=== PATIENT | male | born 1970 | race Caucasian/White ===

== ENCOUNTER 2016-03-10 09:44 | Inpatient (IN) | payer OTHER ==
[2016-03-10 10:03] VITALS: BMI 27.7
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
[2016-03-10] MEDS ORDERED: MAGNESIUM HYDROX 2400MG/30ML ORAL SUSPENSION 30 ML CUP PO PRN (10:37)
[2016-03-10] MEDS ORDERED: LOPERAMIDE HCL 2 MG CAPSULE PO PRN (10:37)
[2016-03-10] MEDS ORDERED: ACETAMINOPHEN 325 MG TABLET (FP) PO PRN (10:37)
[2016-03-10] MEDS ORDERED: MENTHOL/PHENOL 1 EACH UD MM PRN (10:37)
[2016-03-10] MEDS ORDERED: guaiFENesin/D-METHORPHAN HB 10 ML UNIT-DOSE CUPS PO PRN (10:37)
[2016-03-10] MEDS ORDERED: MAG HYDROX/AL HYDROX/SIMETH 30 ML UNIT-DOSE CUP PO PRN (10:37)
[2016-03-10] MEDS ORDERED: MAGNESIUM CITRATE 300 ML BOTTLE PO PRN (10:37)
[2016-03-10] MEDS ORDERED: IBUPROFEN 400 MG TABLET (FP) PO PRN (10:37)
[2016-03-10] MEDS ORDERED: P-EPHED 60MG/TRIPROLIDI 2.5MG TABLET PO PRN (10:37)
[2016-03-10] MEDS ORDERED: NICOTINE POLACRILEX 4 MG GUM BUC PRN (10:37)
[2016-03-10] MEDS ORDERED: METHADONE HCL 10 MG TABLET (FOR DETOX USE ONLY) PO ONE ×2 (11:30→23:00)
[2016-03-10] MEDS ORDERED: diazePAM 5 MG TABLET PO ONE (11:30)
[2016-03-10] MEDS ORDERED: LEVOTHYROXINE NA 112 MCG TABLET (FP) PO ONE (11:30)
[2016-03-10] MEDS: NICOTINE 21 MG/24 HOURS TOPICAL PATCH TD SCH (11:43)
[2016-03-10 13:39] LABS: URINE APPEARANCE CLEAR; URINE BILIRUBIN NEGATIVE (NEGATIVE); URINE BLOOD NEGATIVE (NEGATIVE); URINE COLOR YELLOW; URINE GLUCOSE (UA) NEGATIVE (NEGATIVE); URINE KETONE TRACE (NEGATIVE); URINE LEUK ESTERASE NEGATIVE (NEGATIVE); URINE NITRITE NEGATIVE (NEGATIVE); URINE PROTEIN NEGATIVE (NEGATIVE); URINE UROBILINOGEN 2.0 E.U/dl E.U./dl (0.2-1.0)
[2016-03-10] MEDS: hydrOXYzine PAMOATE 50 MG CAPSULE (FP) PO PRN (13:41)
[2016-03-10] MEDS: CYCLOBENZAPRINE HCL 10 MG TABLET (FP) PO PRN (13:41)
[2016-03-10] MEDS: diazePAM 5 MG TABLET PO SCH ×2 (13:41→22:11)
[2016-03-10] MEDS: diazePAM 5 MG TABLET PO PRN (16:44)
[2016-03-10] MEDS ORDERED: PRAZOSIN HCL 2 MG CAPSULE PO SCH (22:00)
[2016-03-10] MEDS: THIAMINE HCL 100 MG TABLET (FP) PO SCH (22:10)
[2016-03-10] MEDS: PRAZOSIN HCL 1 MG CAPSULE PO SCH (22:11)
[2016-03-10] MEDS: PRAZOSIN HCL 5 MG CAPSULE PO SCH (22:11)
[2016-03-10] MEDS: diphenhydrAMINE HCL 50 MG CAPSULE PO PRN (22:12)
[2016-03-11] MEDS: diazePAM 5 MG TABLET PO PRN ×5 (04:02→23:31)
[2016-03-11] MEDS: diazePAM 5 MG TABLET PO SCH ×3 (05:53→22:24)
[2016-03-11] MEDS: LEVOTHYROXINE NA 112 MCG TABLET (FP) PO SCH (08:03)
--- NOTE | 2016-03-11 09:46 | EKG ---
Test Reason : Blood Pressure : / mmHG Vent. Rate : 093 BPM Atrial Rate : 093 BPM P-R Int : 184 ms QRS Dur : 092 ms QT Int : 374 ms P-R-T Axes : 070 052 066 degrees QTc Int : 465 ms NORMAL SINUS RHYTHM NORMAL ECG NO PREVIOUS ECGS AVAILABLE Confirmed by ALVAREZ CASEY MD ([id number]) on 03/11/2016 9:46:25 AM Referred By: Confirmed By:ALVAREZ CASEY MD
[2016-03-11] MEDS ORDERED: METHADONE HCL 10 MG TABLET (FOR DETOX USE ONLY) PO SCH (10:00)
[2016-03-11 10:20] LABS: MCH 27.1 pg (25.7-33.7); MCHC 32.9 g/dl (32.0-35.9); MEAN CELL VOLUME 82.4 fl (80-96); MEAN PLT VOLUME 9.5 fl (7.5-11.1); PLATELET COUNT 144 K/MM3 (134-434); RDW 13.3 % (11.9-15.9); WHITE BLOOD COUNT 4.3 K/mm3 (4.0-10.0)
[2016-03-11] MEDS: NICOTINE 21 MG/24 HOURS TOPICAL PATCH TD SCH (10:22)
[2016-03-11] MEDS: PRENATAL VITAMINS W/ FOLIC ACID TABLET (FP) PO SCH (10:22)
[2016-03-11 10:56] LABS: ALBUMIN 3.4 g/dl (3.4-5.0); ALK PHOS 54 U/L (45-117); ANION GAP 10 (8-16); BILIRUBIN,TOTAL 0.3 mg/dL (0.2-1.0); CALCIUM 8.7 mg/dL (8.5-10.1); CO2 25 mmol/L (21-32); CREATININE 0.9 mg/dL (0.7-1.3); GLUCOSE,RANDOM 85 mg/dL (74-106); SGOT/AST 9 U/L (15-37); SGPT/ALT 12 U/L (12-78); TOT PROT 6.6 g/dl (6.4-8.2)
[2016-03-11] MEDS: hydrOXYzine PAMOATE 50 MG CAPSULE (FP) PO PRN ×2 (15:05→19:03)
--- NOTE | 2016-03-11 15:15 | PN ---
[facility] CIWA - CIWA Score Nausea/Vomitin-Int. Nausea w/Dry Heave Muscle Tremors: 4-Moderate,w/Arms Extend Anxiety: 4-Mod. Anxious/Guarded Agitation: 3 Paroxysmal Sweats: No Perspiration Orientation: 0-Oriented Tacttile Disturbances: 0-None Auditory Disturbances: 0-None Visual Disturbances: 0-None Headache: 3-Moderate CIWA-Ar Total Score: 18 S COWS - Scale Resting Pulse: 1= OR 81-100 Sweatin=Flushed/Facial Moisture Restless Observation: 3= Extraneous Movement Pupil Size: 0= Normal to Room Light Bone or Joint Aches: 2= Severe Diffuse Aches Runny Nose/ Eye Tearin= Runny Nose/Eyes GI Upset > 30mins: 2= Nausea/Diarrhea Tremor Observation of Outstretched Hands: 2= Slight Tremor Visible Yawning Observation: 0= None Anxiety or Irritability: 2=Irritable/Anxious Goose Flesh Skin: 0=Smooth Skin COWS Score: 16 S Progress Note (SOAP) Subjective: Sweating, nausea, tremor, interrupted sleep, anxious, restless Objective: 03/11/16 15:13 Last Vital Signs Temp Pulse Resp BP Pulse Ox 95.5 F L 74 18 110/84 03/11/16 12:34 03/11/16 12:34 03/11/16 12:34 03/11/16 12:34 Laboratory Tests 03/10/16 03/11/16 03/11/16 11:00 07:20 07:20 WBC 4.3 D RBC 4.82 Hgb 13.1 Hct 39.7 MCV 82.4 MCHC 32.9 RDW 13.3 Plt Count 144 MPV 9.5 Sodium 139 Potassium 4.3 Chloride 104 Carbon Dioxide 25 Anion Gap 10 BUN 14 D Creatinine 0.9 D Creat Clearance w eGFR > 60 Random Glucose 85 D Calcium 8.7 Total Bilirubin 0.3 D AST 9 L ALT 12 D Alkaline Phosphatase 54 Total Protein 6.6 Albumin 3.4 Urine Color Yellow Urine Appearance Clear Urine pH 5.0 Ur Specific [place] 1.029 Urine Protein Negative Urine Glucose (UA) Negative Urine Ketones Trace H Urine Blood Negative Urine Nitrite Negative Urine Bilirubin Negative Urine Urobilinogen 2.0 e.u/dl Ur Leukocyte Esterase Negative RPR Titer 03/11/16 07:20 WBC RBC Hgb Hct MCV MCHC RDW Plt Count MPV Sodium Potassium Chloride Carbon Dioxide Anion Gap BUN Creatinine Creat Clearance w eGFR Random Glucose Calcium Total Bilirubin AST ALT Alkaline Phosphatase Total Protein Albumin Urine Color Urine Appearance Urine pH Ur Specific [place] Urine Protein Urine Glucose (UA) Urine Ketones Urine Blood Urine Nitrite Urine Bilirubin Urine Urobilinogen Ur Leukocyte Esterase RPR Titer Nonreactive Labs noted Assessment: 03/11/16 15:13 Withdrawal symptoms Plan: Continue detox Ambien 10mg po qhs prn for interrupted sleep
[2016-03-11] MEDS: PRAZOSIN HCL 1 MG CAPSULE PO SCH (22:20)
[2016-03-11] MEDS: PRAZOSIN HCL 5 MG CAPSULE PO SCH (22:20)
[2016-03-11] MEDS: THIAMINE HCL 100 MG TABLET (FP) PO SCH (22:21)
[2016-03-11] MEDS: ZOLPIDEM TARTRATE 10 MG TABLET (PARK CARE ONLY) PO PRN (22:22)
[2016-03-11] MEDS: diphenhydrAMINE HCL 50 MG CAPSULE PO PRN (23:32)
[2016-03-12] MEDS: CYCLOBENZAPRINE HCL 10 MG TABLET (FP) PO PRN (02:02)
[2016-03-12] MEDS: hydrOXYzine PAMOATE 50 MG CAPSULE (FP) PO PRN ×2 (02:02→10:16)
[2016-03-12] MEDS: diazePAM 5 MG TABLET PO PRN ×4 (03:33→16:55)
[2016-03-12] MEDS: LEVOTHYROXINE NA 112 MCG TABLET (FP) PO SCH (06:47)
[2016-03-12] MEDS ORDERED: CYCLOBENZAPRINE HCL 10 MG TABLET (FP) PO ONE (09:17)
--- NOTE | 2016-03-12 09:22 | PN ---
[facility] CIWA - CIWA Score Nausea/Vomitin Muscle Tremors: 4-Moderate,w/Arms Extend Anxiety: 4-Mod. Anxious/Guarded Agitation: 4-Moderately Restless Paroxysmal Sweats: 4-Forehead w/Sweat Beads Orientation: 0-Oriented Tacttile Disturbances: 2-Mild Itch/Numbness/Burn Auditory Disturbances: 0-None Visual Disturbances: 0-None Headache: 2-Mild CIWA-Ar Total Score: 23 BHS COWS - Scale Resting Pulse: 0= [place] 80 or Below Sweatin= Beads of Sweat on Face Restless Observation: 3= Extraneous Movement Pupil Size: 0= Normal to Room Light Bone or Joint Aches: 2= Severe Diffuse Aches Runny Nose/ Eye Tearin= Runny Nose/Eyes GI Upset > 30mins: 2= Nausea/Diarrhea Tremor Observation of Outstretched Hands: 2= Slight Tremor Visible Yawning Observation: 1= 1-2x During Session Anxiety or Irritability: 2=Irritable/Anxious Goose Flesh Skin: 3=Piloerection COWS Score: 20 [facility] Progress Note (SOAP) Subjective: sweating,anxiety,tremors,restless,interrupted sleep,muscle aches/spasm Objective: 03/12/16 09:21 Vital Signs - 8 hr 03/12/16 06:16 Temperature 97.3 F L Pulse Rate 80 Respiratory 18 Rate Blood Pressure 99/64 Laboratory Tests 03/10/16 03/11/16 03/11/16 11:00 07:20 07:20 WBC 4.3 D RBC 4.82 Hgb 13.1 Hct 39.7 MCV 82.4 MCHC 32.9 RDW 13.3 Plt Count 144 MPV 9.5 Sodium 139 Potassium 4.3 Chloride 104 Carbon Dioxide 25 Anion Gap 10 BUN 14 D Creatinine 0.9 D Creat Clearance w eGFR > 60 Random Glucose 85 D Calcium 8.7 Total Bilirubin 0.3 D AST 9 L ALT 12 D Alkaline Phosphatase 54 Total Protein 6.6 Albumin 3.4 Urine Color Yellow Urine Appearance Clear Urine pH 5.0 Ur Specific [place] 1.029 Urine Protein Negative Urine Glucose (UA) Negative Urine Ketones Trace H Urine Blood Negative Urine Nitrite Negative Urine Bilirubin Negative Urine Urobilinogen 2.0 e.u/dl Ur Leukocyte Esterase Negative RPR Titer 03/11/16 07:20 WBC RBC Hgb Hct MCV MCHC RDW Plt Count MPV Sodium Potassium Chloride Carbon Dioxide Anion Gap BUN Creatinine Creat Clearance w eGFR Random Glucose Calcium Total Bilirubin AST ALT Alkaline Phosphatase Total Protein Albumin Urine Color Urine Appearance Urine pH Ur Specific [place] Urine Protein Urine Glucose (UA) Urine Ketones Urine Blood Urine Nitrite Urine Bilirubin Urine Urobilinogen Ur Leukocyte Esterase RPR Titer Nonreactive labs noted Assessment: 03/12/16 09:21 withdrawal sx. Plan: continue detox flexeril,imodium and prn valium
[2016-03-12] MEDS: PRENATAL VITAMINS W/ FOLIC ACID TABLET (FP) PO SCH (10:12)
[2016-03-12] MEDS: METHADONE HCL 5 MG TABLET (FOR DETOX USE ONLY) PO SCH (10:12)
[2016-03-12] MEDS: diazePAM 5 MG TABLET PO SCH ×2 (10:12→22:42)
[2016-03-12] MEDS: NICOTINE 21 MG/24 HOURS TOPICAL PATCH TD SCH (10:13)
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
[2016-03-12] MEDS: DULoxetine HCL 60 MG CAPSULE.DR PO SCH (14:46)
[2016-03-12] MEDS: CYCLOBENZAPRINE HCL 10 MG TABLET (FP) PO SCH ×2 (14:47→22:43)
[2016-03-12] MEDS: THIAMINE HCL 100 MG TABLET (FP) PO SCH (22:37)
[2016-03-12] MEDS: PRAZOSIN HCL 1 MG CAPSULE PO SCH (22:39)
[2016-03-12] MEDS: PRAZOSIN HCL 5 MG CAPSULE PO SCH (22:39)
[2016-03-12] MEDS: LURASIDONE HCL 40 MG TABLET PO SCH (22:41)
[2016-03-12] MEDS: ZOLPIDEM TARTRATE 10 MG TABLET (PARK CARE ONLY) PO PRN (22:42)
[2016-03-13] MEDS: diazePAM 5 MG TABLET PO PRN (06:07)
[2016-03-13] MEDS: CYCLOBENZAPRINE HCL 10 MG TABLET (FP) PO SCH ×3 (06:07→22:36)
[2016-03-13] MEDS: LEVOTHYROXINE NA 112 MCG TABLET (FP) PO SCH (07:20)
[2016-03-13] MEDS: METHADONE HCL 5 MG TABLET (FOR DETOX USE ONLY) PO SCH (11:10)
[2016-03-13] MEDS: diazePAM 5 MG TABLET PO SCH ×2 (11:10→22:35)
[2016-03-13] MEDS: PRENATAL VITAMINS W/ FOLIC ACID TABLET (FP) PO SCH (11:11)
[2016-03-13] MEDS: DULoxetine HCL 60 MG CAPSULE.DR PO SCH (11:12)
[2016-03-13] MEDS: NICOTINE 21 MG/24 HOURS TOPICAL PATCH TD SCH (11:14)
--- NOTE | 2016-03-13 11:59 | PN ---
BHS Progress Note (SOAP) Subjective: ANXIETY,SWEATS/CHILLS,INTERMITTENT SLEEP. Objective: 03/13/16 11:59 Vital Signs Temperature 96.4 F L 03/13/16 11:51 Pulse Rate 78 03/13/16 11:51 Respiratory Rate 18 03/13/16 11:51 Blood Pressure 105/77 03/13/16 11:51 O2 Sat by Pulse Oximetry (%) Assessment: 03/13/16 11:59 WITHDRAWAL SX Plan: CONTINUE DETOX
[2016-03-13] MEDS: hydrOXYzine PAMOATE 50 MG CAPSULE (FP) PO PRN ×2 (13:29→17:42)
[2016-03-13] MEDS: THIAMINE HCL 100 MG TABLET (FP) PO SCH (22:34)
[2016-03-13] MEDS: PRAZOSIN HCL 1 MG CAPSULE PO SCH (22:35)
[2016-03-13] MEDS: PRAZOSIN HCL 5 MG CAPSULE PO SCH (22:35)
[2016-03-13] MEDS: ZOLPIDEM TARTRATE 10 MG TABLET (PARK CARE ONLY) PO PRN (22:35)
[2016-03-13] MEDS: LURASIDONE HCL 40 MG TABLET PO SCH (22:36)
[2016-03-13] MEDS: MIRTAZAPINE 30 MG TABLET (FP) PO SCH (22:36)
[2016-03-14] MEDS: CYCLOBENZAPRINE HCL 10 MG TABLET (FP) PO SCH ×3 (06:03→21:45)
[2016-03-14] MEDS: hydrOXYzine PAMOATE 50 MG CAPSULE (FP) PO PRN ×3 (06:04→17:17)
[2016-03-14] MEDS: LEVOTHYROXINE NA 112 MCG TABLET (FP) PO SCH (07:29)
[2016-03-14] MEDS ORDERED: METHADONE HCL 10 MG TABLET (FOR DETOX USE ONLY) PO SCH (10:00)
[2016-03-14] MEDS ORDERED: diazePAM 5 MG TABLET PO SCH (10:00)
[2016-03-14] MEDS: PRENATAL VITAMINS W/ FOLIC ACID TABLET (FP) PO SCH (10:43)
[2016-03-14] MEDS: NICOTINE 21 MG/24 HOURS TOPICAL PATCH TD SCH (10:43)
[2016-03-14] MEDS: DULoxetine HCL 60 MG CAPSULE.DR PO SCH (10:44)
--- NOTE | 2016-03-14 11:09 | PN ---
BHS Progress Note (SOAP) Subjective: DECREASED ANXIETY,SWEATS,FATIGUE Objective: 03/14/16 11:09 Vital Signs Temperature 95.9 F L 03/14/16 09:26 Pulse Rate 81 03/14/16 09:26 Respiratory Rate 18 03/14/16 09:26 Blood Pressure 95/66 03/14/16 09:26 O2 Sat by Pulse Oximetry (%) Assessment: 03/14/16 11:09 WITHDRAWAL SX Plan: CONTINUE DETOX
--- NOTE | 2016-03-14 16:01 | PN ---
[facility] Progress Note Note: Psychiatry Attending's note : Met with the patient for discussion of his medications. I made an attempt to contact Dr Shar Pineda @ [phone].Not available. She attended to Mr Gutierrez's outpatient psychiatric care until patient relocated to [facility] from [place]. Patient has,verbally,authorized this ad writer to reach his psychiatrist for collateral information. Mr Gutierrez was sitting in the office and calls were made in his presence. This includes a call to his current pharmacist at the [facility] @ [phone]. Medications are reviewed with pharmacist.Refills are due at this time.Confirmed. Patient admits to being in the process of searching for a new psychiatrist for his follow up. In the meantime,he needs his medications for maintenance of psychiatric stability/adequate functioning. Hospital course is benign.Medications are well tolerated.Patient is adherent to all aspects of his care. Mr Gutierrez is strongly encouraged to get the services of an OPD provider ( psychiatrist/therapist). He needs to be on his medications to prevent psychiatric decompensation.Case discussed with social work team. Patient is referred to the [facility] ).Instructed to call for intake. Mr Gutierrez agrees with this careplan.
[2016-03-14] MEDS: ZOLPIDEM TARTRATE 10 MG TABLET (PARK CARE ONLY) PO PRN (21:45)
[2016-03-14] MEDS: MIRTAZAPINE 30 MG TABLET (FP) PO SCH (21:45)
[2016-03-14] MEDS: THIAMINE HCL 100 MG TABLET (FP) PO SCH (21:45)
[2016-03-14] MEDS: PRAZOSIN HCL 1 MG CAPSULE PO SCH (21:46)
[2016-03-14] MEDS: LURASIDONE HCL 40 MG TABLET PO SCH (21:46)
[2016-03-14] MEDS: PRAZOSIN HCL 5 MG CAPSULE PO SCH (21:48)
[2016-03-15] MEDS: CYCLOBENZAPRINE HCL 10 MG TABLET (FP) PO SCH (05:36)
[2016-03-15] MEDS: hydrOXYzine PAMOATE 50 MG CAPSULE (FP) PO PRN (05:36)
[2016-03-15] MEDS ORDERED: METHADONE HCL 5 MG TABLET (FOR DETOX USE ONLY) PO SCH (06:00)
[2016-03-15 06:10] VITALS: BP 105/72; PULSE 89; TEMP 97.1
[2016-03-15] MEDS: LEVOTHYROXINE NA 112 MCG TABLET (FP) PO SCH (06:20)
--- NOTE | 2016-03-15 08:49 | DS ---
[facility] Detox Discharge Summary Admission Date: 03/10/16 Discharge Date: 03/15/16 - History Present History: Cocaine Dependence, Opioid Dependence, Sedative Dependence Pertinent Past History: HEP C HTN - Physical Exam Results Vital Signs: Vital Signs Temperature 97.1 F L 03/15/16 06:09 Pulse Rate 89 03/15/16 06:09 Respiratory Rate 18 03/15/16 06:09 Blood Pressure 105/72 03/15/16 06:09 O2 Sat by Pulse Oximetry (%) Pertinent Admission Physical Exam Findings: WITHDRAWAL SX. Laboratory Last Values WBC 4.3 K/mm3 (4.0-10.0) D 03/11/16 07:20 RBC 4.82 M/mm3 (4.00-5.60) 03/11/16 07:20 Hgb 13.1 GM/dL (11.7-16.9) 03/11/16 07:20 Hct 39.7 % (35.4-49) 03/11/16 07:20 MCV 82.4 fl (80-96) 03/11/16 07:20 MCHC 32.9 g/dl (32.0-35.9) 03/11/16 07:20 RDW 13.3 % (11.9-15.9) 03/11/16 07:20 Plt Count 144 K/MM3 (134-434) 03/11/16 07:20 MPV 9.5 fl (7.5-11.1) 03/11/16 07:20 Sodium 139 mmol/L (136-145) 03/11/16 07:20 Potassium 4.3 mmol/L (3.5-5.1) 03/11/16 07:20 Chloride 104 mmol/L (98-107) 03/11/16 07:20 Carbon Dioxide 25 mmol/L (21-32) 03/11/16 07:20 Anion Gap 10 (8-16) 03/11/16 07:20 BUN 14 mg/dL (7-18) D 03/11/16 07:20 Creatinine 0.9 mg/dL (0.7-1.3) D 03/11/16 07:20 Creat Clearance w eGFR > 60 (>60) 03/11/16 07:20 POC Glucometer 118 UNITS (()) 03/14/16 16:21 Random Glucose 85 mg/dL (74-106) D 03/11/16 07:20 Calcium 8.7 mg/dL (8.5-10.1) 03/11/16 07:20 Total Bilirubin 0.3 mg/dL (0.2-1.0) D 03/11/16 07:20 AST 9 U/L (15-37) L 03/11/16 07:20 ALT 12 U/L (12-78) D 03/11/16 07:20 Alkaline Phosphatase 54 U/L (45-117) 03/11/16 07:20 Total Protein 6.6 g/dl (6.4-8.2) 03/11/16 07:20 Albumin 3.4 g/dl (3.4-5.0) 03/11/16 07:20 Urine Color Yellow 03/10/16 11:00 Urine Appearance Clear 03/10/16 11:00 Urine pH 5.0 (5.0-8.0) 03/10/16 11:00 Ur Specific [place] 1.029 (1.001-1.035) 03/10/16 11:00 Urine Protein Negative (NEGATIVE) 03/10/16 11:00 Urine Glucose (UA) Negative (NEGATIVE) 03/10/16 11:00 Urine Ketones Trace (NEGATIVE) H 03/10/16 11:00 Urine Blood Negative (NEGATIVE) 03/10/16 11:00 Urine Nitrite Negative (NEGATIVE) 03/10/16 11:00 Urine Bilirubin Negative (NEGATIVE) 03/10/16 11:00 Urine Urobilinogen 2.0 e.u/dl E.U./dl (0.2-1.0) 03/10/16 11:00 Ur Leukocyte Esterase Negative (NEGATIVE) 03/10/16 11:00 RPR Titer Nonreactive (NONREACTIVE) 03/11/16 07:20 LABS NOTED - Treatment Hospital Course: Detox Protocol Followed, Detoxed Safely, Responded well, Discharged Condition Good - Medication Discharge Medications: Ambulatory Orders Prazosin HCl [Minipress -] 2 mg PO HS 12/23/14 Prazosin HCl [Minipress -] 5 mg PO HS 12/23/14 Duloxetine HCl [Cymbalta -] 120 mg PO DAILY 14 Days 12/25/14 Lurasidone HCl [Latuda -] 120 mg PO HS 01/03/16 Mirtazapine [Remeron -] 30 mg PO HS 01/03/16 Duloxetine HCl [Cymbalta -] 120 mg PO DAILY #60 capsule.dr 03/14/16 Levothyroxine [Synthroid -] 112 mcg PO DAILY #30 tablet 03/14/16 Lurasidone HCl [Latuda] 120 mg PO HS #30 tablet 03/14/16 Mirtazapine [Remeron -] 30 mg PO HS #30 tablet 03/14/16 Prazosin HCl 5 mg PO HS #30 capsule 03/14/16 Prazosin HCl [Minipress -] 2 mg PO HS #30 capsule 03/14/16 Propranolol HCl [Propranolol HCl ER] 60 mg PO DAILY #30 cap.sa.24h 03/14/16 - Diagnosis (1) Cocaine dependence Status: Acute Qualifiers: Substance use status: uncomplicated Qualified Code(s): F14.20 - Cocaine dependence, uncomplicated (2) Nicotine dependence Status: Acute Qualifiers: Nicotine product type: cigarettes Substance use status: uncomplicated Qualified Code(s): F17.210 - Nicotine dependence, cigarettes, uncomplicated (3) Opioid dependence with withdrawal Status: Acute (4) Sedative/hypnotic withdrawal without complication Status: Acute (5) Nightmares associated with chronic post-traumatic stress disorder Status: Chronic (6) Post traumatic stress disorder (PTSD) Status: Chronic - AMA Did Patient Leave Against Medical Advice: No
== END 2016-03-15 06:50 | disposition home or self-care (01) | DRG 897 ==
LOC: YASAS 09:44 → Y3N 10:45
PROVIDERS: ADMIT Internal Medicine; ATTEND Internal Medicine
PROC: HZ2ZZZZ Detoxification Services for Substance Abuse Treatment (ICD-10-PCS; principal; 2016-03-15)
DX: F19.230 Other psychoactive substance dependence with withdrawal, uncomplicated (principal); F14.20 Cocaine dependence, uncomplicated; F11.23 Opioid dependence with withdrawal; F13.230 Sedative, hypnotic or anxiolytic dependence with withdrawal, uncomplicated; F17.210 Nicotine dependence, cigarettes, uncomplicated; F31.9 Bipolar disorder, unspecified; F19.24 Other psychoactive substance dependence with psychoactive substance-induced mood disorder; F43.10 Post-traumatic stress disorder, unspecified; F51.5 Nightmare disorder; I10 Essential (primary) hypertension; E03.9 Hypothyroidism, unspecified; B18.2 Chronic viral hepatitis C; G40.909 Epilepsy, unspecified, not intractable, without status epilepticus
CPT/HCPCS: 36415; 80053; 81003; 85027; 86593; 93005; 93010

== ENCOUNTER 2016-04-24 09:49 | Inpatient (IN) | payer OTHER ==
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
[2016-04-24 10:20] VITALS: BMI 26.6
[2016-04-24] MEDS ORDERED: IBUPROFEN 400 MG TABLET (FP) PO PRN (12:32)
[2016-04-24] MEDS ORDERED: P-EPHED 60MG/TRIPROLIDI 2.5MG TABLET PO PRN (12:32)
[2016-04-24] MEDS ORDERED: MAGNESIUM CITRATE 300 ML BOTTLE PO PRN (12:32)
[2016-04-24] MEDS ORDERED: guaiFENesin/D-METHORPHAN HB 10 ML UNIT-DOSE CUPS PO PRN (12:32)
[2016-04-24] MEDS ORDERED: LOPERAMIDE HCL 2 MG CAPSULE PO PRN (12:32)
[2016-04-24] MEDS ORDERED: NICOTINE POLACRILEX 2 MG GUM BUC PRN (12:32)
[2016-04-24] MEDS ORDERED: ACETAMINOPHEN 325 MG TABLET (FP) PO PRN (12:32)
[2016-04-24] MEDS ORDERED: MAGNESIUM HYDROX 2400MG/30ML ORAL SUSPENSION 30 ML CUP PO PRN (12:32)
[2016-04-24] MEDS ORDERED: MAG HYDROX/AL HYDROX/SIMETH 30 ML UNIT-DOSE CUP PO PRN (12:32)
[2016-04-24] MEDS ORDERED: diphenhydrAMINE HCL 50 MG CAPSULE PO PRN (12:32)
[2016-04-24] MEDS ORDERED: MENTHOL/PHENOL 1 EACH UD MM PRN (12:32)
[2016-04-24] MEDS ORDERED: diazePAM 5 MG TABLET PO ONE (12:58)
[2016-04-24] MEDS ORDERED: METHADONE HCL 10 MG TABLET (FOR DETOX USE ONLY) PO ONE ×2 (13:00→23:00)
[2016-04-24] MEDS: NICOTINE 21 MG/24 HOURS TOPICAL PATCH TD SCH (13:38)
[2016-04-24] MEDS: diazePAM 5 MG TABLET PO SCH ×2 (14:32→21:25)
[2016-04-24] MEDS: diazePAM 5 MG TABLET PO PRN ×2 (17:15→23:54)
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
[2016-04-24] MEDS ORDERED: MIRTAZAPINE 15 MG TABLET (FP) ONE (20:57)
[2016-04-24] MEDS: THIAMINE HCL 100 MG TABLET (FP) PO SCH (21:28)
[2016-04-24 21:44] LABS: URINE APPEARANCE CLEAR; URINE BILIRUBIN NEGATIVE (NEGATIVE); URINE BLOOD NEGATIVE (NEGATIVE); URINE COLOR YELLOW; URINE GLUCOSE (UA) NEGATIVE (NEGATIVE); URINE KETONE NEGATIVE (NEGATIVE); URINE LEUK ESTERASE NEGATIVE (NEGATIVE); URINE NITRITE NEGATIVE (NEGATIVE); URINE PROTEIN NEGATIVE (NEGATIVE); URINE UROBILINOGEN NEGATIVE E.U./dl (0.2-1.0)
[2016-04-24] MEDS ORDERED: MIRTAZAPINE 30 MG TABLET (FP) PO SCH (22:00)
[2016-04-24] MEDS ORDERED: PRAZOSIN HCL 5 MG CAPSULE PO SCH (22:00)
[2016-04-24] MEDS ORDERED: LURASIDONE HCL 40 MG TABLET PO SCH (22:00)
[2016-04-24] MEDS ORDERED: PRAZOSIN HCL PO SCH (22:00)
[2016-04-25] MEDS: diazePAM 5 MG TABLET PO SCH ×3 (05:58→21:02)
[2016-04-25] MEDS: LEVOTHYROXINE NA 112 MCG TABLET (FP) PO SCH (06:52)
[2016-04-25] MEDS: diazePAM 5 MG TABLET PO PRN ×2 (09:07→16:47)
--- NOTE | 2016-04-25 09:16 | PN ---
[facility] CIWA - CIWA Score Nausea/Vomitin Muscle Tremors: 3 Anxiety: 3 Agitation: 3 Paroxysmal Sweats: 1-Minimal Palms Moist Orientation: 0-Oriented Tacttile Disturbances: 1-Very Mild Itch/Numbness Auditory Disturbances: 1-Very Mild Visual Disturbances: 1-Very Mild Sensitivity Headache: 2-Mild CIWA-Ar Total Score: 18 BHS COWS - Scale Resting Pulse: 1= [place] 81-100 Sweatin= Chills/Flushing Restless Observation: 3= Extraneous Movement Pupil Size: 1= Pupils >than Normal Bone or Joint Aches: 2= Severe Diffuse Aches Runny Nose/ Eye Tearin= Runny Nose/Eyes GI Upset > 30mins: 3= Vomiting/Diarrhea Tremor Observation of Outstretched Hands: 2= Slight Tremor Visible Yawning Observation: 1= 1-2x During Session Anxiety or Irritability: 2=Irritable/Anxious Goose Flesh Skin: 0=Smooth Skin COWS Score: 18 [facility] Progress Note (SOAP) Subjective: ALERT,IRRITABLE,ANXIOUS,INTERRUPTED SLEEP,TREMOR,PAIN IN THE BODY AND BACK Objective: 04/25/16 09:16 Vital Signs Temperature 97.1 F L 04/25/16 06:47 Pulse Rate 82 04/25/16 06:47 Respiratory Rate 16 04/25/16 06:47 Blood Pressure 105/75 04/25/16 06:47 O2 Sat by Pulse Oximetry (%) 04/25/16 09:17 EKF NSR,NORMAL ECG Laboratory Last Values Urine Color Yellow 04/24/16 21:00 Urine Appearance Clear 04/24/16 21:00 Urine pH 5.0 (5.0-8.0) 04/24/16 21:00 Ur Specific [place] 1.020 (1.001-1.035) 04/24/16 21:00 Urine Protein Negative (NEGATIVE) 04/24/16 21:00 Urine Glucose (UA) Negative (NEGATIVE) 04/24/16 21:00 Urine Ketones Negative (NEGATIVE) 04/24/16 21:00 Urine Blood Negative (NEGATIVE) 04/24/16 21:00 Urine Nitrite Negative (NEGATIVE) 04/24/16 21:00 Urine Bilirubin Negative (NEGATIVE) 04/24/16 21:00 Urine Urobilinogen Negative E.U./dl (0.2-1.0) 04/24/16 21:00 Ur Leukocyte Esterase Negative (NEGATIVE) 04/24/16 21:00 LABS PENDING Assessment: 04/25/16 09:17 WITHDRAWAL SYMPTOM Plan: CONTINUE DETOX
[2016-04-25] MEDS ORDERED: METHADONE HCL 10 MG TABLET (FOR DETOX USE ONLY) PO SCH (10:00)
[2016-04-25] MEDS: NICOTINE 21 MG/24 HOURS TOPICAL PATCH TD SCH (10:29)
[2016-04-25] MEDS: DULoxetine HCL 60 MG CAPSULE.DR PO SCH (10:29)
[2016-04-25] MEDS: PRENATAL VITAMINS W/ FOLIC ACID TABLET (FP) PO SCH (10:30)
[2016-04-25 10:32] LABS: MCH 26.4 pg (25.7-33.7); MCHC 32.6 g/dl (32.0-35.9); MEAN CELL VOLUME 81.2 fl (80-96); MEAN PLT VOLUME 9.9 fl (7.5-11.1); PLATELET COUNT 178 K/MM3 (134-434); RDW 13.9 % (11.9-15.9)
[2016-04-25 10:54] LABS: ALBUMIN 4.2 g/dl (3.4-5.0); ANION GAP 8 (8-16); CALCIUM 9.2 mg/dL (8.5-10.1); CO2 29 mmol/L (21-32); CREATININE 1.1 mg/dL (0.7-1.3); GLUCOSE,RANDOM 130 mg/dL (74-106); SGOT/AST 11 U/L (15-37); SGPT/ALT 18 U/L (12-78)
[2016-04-25 10:56] LABS: ALK PHOS 68 U/L (45-117); BILIRUBIN,TOTAL 0.2 mg/dL (0.2-1.0); TOT PROT 7.5 g/dl (6.4-8.2)
[2016-04-25 12:07] LABS: HIV 1 & 2 AB NEGATIVE; HIV 1 AGp24 NEGATIVE
--- NOTE | 2016-04-25 13:24 | EKG ---
Test Reason : Blood Pressure : / mmHG Vent. Rate : 087 BPM Atrial Rate : 087 BPM P-R Int : 190 ms QRS Dur : 088 ms QT Int : 362 ms P-R-T Axes : 076 059 067 degrees QTc Int : 435 ms NORMAL SINUS RHYTHM NORMAL ECG WHEN COMPARED WITH ECG OF 10-MAR-2016 11:53, NO SIGNIFICANT CHANGE WAS FOUND Confirmed by RONA NOVA MD ([id number]) on 04/25/2016 1:23:52 PM Referred By: Confirmed By:RONA NOVA MD
[2016-04-25] MEDS ORDERED: ZOLPIDEM TARTRATE 5 MG TABLET PO PRN (19:34)
[2016-04-25] MEDS ORDERED: PRAZOSIN HCL 5 MG CAPSULE PO SCH (21:00)
[2016-04-25] MEDS: MIRTAZAPINE 15 MG TABLET (FP) PO SCH (21:03)
[2016-04-25] MEDS: LURASIDONE HCL 40 MG TABLET PO SCH (21:03)
[2016-04-25] MEDS: PRAZOSIN HCL PO SCH (21:03)
[2016-04-25] MEDS: THIAMINE HCL 100 MG TABLET (FP) PO SCH (21:05)
[2016-04-26] MEDS: diazePAM 5 MG TABLET PO PRN ×4 (05:51→20:35)
[2016-04-26] MEDS: LEVOTHYROXINE NA 112 MCG TABLET (FP) PO SCH (07:11)
--- NOTE | 2016-04-26 10:32 | PN ---
[facility] CIWA - CIWA Score Nausea/Vomitin Muscle Tremors: 3 Anxiety: 3 Agitation: 2 Paroxysmal Sweats: 1-Minimal Palms Moist Orientation: 0-Oriented Tacttile Disturbances: 1-Very Mild Itch/Numbness Auditory Disturbances: 1-Very Mild Visual Disturbances: 1-Very Mild Sensitivity Headache: 2-Mild CIWA-Ar Total Score: 17 BHS COWS - Scale Resting Pulse: 0= NE 80 or Below Sweatin= Chills/Flushing Restless Observation: 3= Extraneous Movement Pupil Size: 1= Pupils >than Normal Bone or Joint Aches: 2= Severe Diffuse Aches Runny Nose/ Eye Tearin= Runny Nose/Eyes GI Upset > 30mins: 3= Vomiting/Diarrhea Tremor Observation of Outstretched Hands: 2= Slight Tremor Visible Yawning Observation: 1= 1-2x During Session Anxiety or Irritability: 2=Irritable/Anxious Goose Flesh Skin: 0=Smooth Skin COWS Score: 17 S Progress Note (SOAP) Subjective: ALERT,IRRITABLE,ANXIOUS,INTERRUPTED SLEEP,TREMOR Objective: 04/26/16 10:30 Vital Signs Temperature 96.4 F L 04/26/16 09:52 Pulse Rate 75 04/26/16 09:52 Respiratory Rate 20 04/26/16 09:52 Blood Pressure 105/73 04/26/16 09:52 O2 Sat by Pulse Oximetry (%) Assessment: 04/26/16 10:30 Laboratory Last Values WBC 11.0 K/mm3 (4.0-10.0) H D 04/25/16 06:30 RBC 4.97 M/mm3 (4.00-5.60) 04/25/16 06:30 Hgb 13.1 GM/dL (11.7-16.9) 04/25/16 06:30 Hct 40.3 % (35.4-49) 04/25/16 06:30 MCV 81.2 fl (80-96) 04/25/16 06:30 MCHC 32.6 g/dl (32.0-35.9) 04/25/16 06:30 RDW 13.9 % (11.9-15.9) 04/25/16 06:30 Plt Count 178 K/MM3 (134-434) D 04/25/16 06:30 MPV 9.9 fl (7.5-11.1) 04/25/16 06:30 Sodium 134 mmol/L (136-145) L 04/25/16 06:30 Potassium 4.5 mmol/L (3.5-5.1) 04/25/16 06:30 Chloride 97 mmol/L (98-107) L 04/25/16 06:30 Carbon Dioxide 29 mmol/L (21-32) 04/25/16 06:30 Anion Gap 8 (8-16) 04/25/16 06:30 BUN 18 mg/dL (7-18) D 04/25/16 06:30 Creatinine 1.1 mg/dL (0.7-1.3) D 04/25/16 06:30 Creat Clearance w eGFR > 60 (>60) 04/25/16 06:30 Random Glucose 130 mg/dL (74-106) H D 04/25/16 06:30 Calcium 9.2 mg/dL (8.5-10.1) 04/25/16 06:30 Total Bilirubin 0.2 mg/dL (0.2-1.0) D 04/25/16 06:30 AST 11 U/L (15-37) L D 04/25/16 06:30 ALT 18 U/L (12-78) D 04/25/16 06:30 Alkaline Phosphatase 68 U/L (45-117) D 04/25/16 06:30 Total Protein 7.5 g/dl (6.4-8.2) 04/25/16 06:30 Albumin 4.2 g/dl (3.4-5.0) D 04/25/16 06:30 Urine Color Yellow 04/24/16 21:00 Urine Appearance Clear 04/24/16 21:00 Urine pH 5.0 (5.0-8.0) 04/24/16 21:00 Ur Specific [place] 1.020 (1.001-1.035) 04/24/16 21:00 Urine Protein Negative (NEGATIVE) 04/24/16 21:00 Urine Glucose (UA) Negative (NEGATIVE) 04/24/16 21:00 Urine Ketones Negative (NEGATIVE) 04/24/16 21:00 Urine Blood Negative (NEGATIVE) 04/24/16 21:00 Urine Nitrite Negative (NEGATIVE) 04/24/16 21:00 Urine Bilirubin Negative (NEGATIVE) 04/24/16 21:00 Urine Urobilinogen Negative E.U./dl (0.2-1.0) 04/24/16 21:00 Ur Leukocyte Esterase Negative (NEGATIVE) 04/24/16 21:00 RPR Titer Nonreactive (NONREACTIVE) 04/25/16 06:30 Hepatitis C Antibody >11.0 s/co ratio (0.0-0.9) H 04/24/16 13:00 HIV 1&2 Antibody Screen Negative 04/24/16 07:00 HIV P24 Antigen Negative 04/24/16 07:00 KNOWN CASE OF HEPATITIS C Plan: WITHDRAWAL SYMPTOM,CONTINUE DETOX,ENCOURAGE ORAL FLUID,WBC 11,000,INITIAL GLUCOSE IS 130,BGM MONITORING
[2016-04-26] MEDS: METHADONE HCL 5 MG TABLET (FOR DETOX USE ONLY) PO SCH (10:40)
[2016-04-26] MEDS: diazePAM 5 MG TABLET PO SCH ×2 (10:40→22:23)
[2016-04-26] MEDS: DULoxetine HCL 60 MG CAPSULE.DR PO SCH (10:41)
[2016-04-26] MEDS: PRENATAL VITAMINS W/ FOLIC ACID TABLET (FP) PO SCH (10:41)
[2016-04-26] MEDS: NICOTINE 21 MG/24 HOURS TOPICAL PATCH TD SCH (10:42)
[2016-04-26] MEDS: hydrOXYzine PAMOATE 50 MG CAPSULE (FP) PO PRN (19:51)
[2016-04-26] MEDS: THIAMINE HCL 100 MG TABLET (FP) PO SCH (21:04)
[2016-04-26] MEDS: PRAZOSIN HCL PO SCH (21:06)
[2016-04-26] MEDS: MIRTAZAPINE 15 MG TABLET (FP) PO SCH (21:07)
[2016-04-26] MEDS: LURASIDONE HCL 40 MG TABLET PO SCH (21:07)
[2016-04-26] MEDS: ZOLPIDEM TARTRATE 10 MG TABLET (PARK CARE ONLY) PO PRN (22:23)
[2016-04-27] MEDS: diazePAM 5 MG TABLET PO PRN ×2 (05:33→12:23)
[2016-04-27] MEDS: LEVOTHYROXINE NA 112 MCG TABLET (FP) PO SCH (07:05)
[2016-04-27] MEDS: METHADONE HCL 5 MG TABLET (FOR DETOX USE ONLY) PO SCH (10:46)
[2016-04-27] MEDS: diazePAM 5 MG TABLET PO SCH ×2 (10:46→21:04)
[2016-04-27] MEDS: NICOTINE 21 MG/24 HOURS TOPICAL PATCH TD SCH (10:47)
[2016-04-27] MEDS: PRENATAL VITAMINS W/ FOLIC ACID TABLET (FP) PO SCH (10:47)
[2016-04-27] MEDS: DULoxetine HCL 60 MG CAPSULE.DR PO SCH (10:47)
[2016-04-27] MEDS: hydrOXYzine PAMOATE 50 MG CAPSULE (FP) PO PRN (14:34)
--- NOTE | 2016-04-27 15:26 | PN ---
BHS Progress Note (SOAP) Subjective: Sweating, Body Aches, Nausea, Diarrhea, Tremors. Objective: PT. A & O X 2 (DISORIENTED ABOUT DAY/ DATE). 04/27/16 15:24 Vital Signs Temperature 97.1 F L 04/27/16 14:21 Pulse Rate 78 04/27/16 14:21 Respiratory Rate 16 04/27/16 14:21 Blood Pressure 113/72 04/27/16 14:21 O2 Sat by Pulse Oximetry (%) Laboratory Last Values WBC 11.0 K/mm3 (4.0-10.0) H D 04/25/16 06:30 RBC 4.97 M/mm3 (4.00-5.60) 04/25/16 06:30 Hgb 13.1 GM/dL (11.7-16.9) 04/25/16 06:30 Hct 40.3 % (35.4-49) 04/25/16 06:30 MCV 81.2 fl (80-96) 04/25/16 06:30 MCHC 32.6 g/dl (32.0-35.9) 04/25/16 06:30 RDW 13.9 % (11.9-15.9) 04/25/16 06:30 Plt Count 178 K/MM3 (134-434) D 04/25/16 06:30 MPV 9.9 fl (7.5-11.1) 04/25/16 06:30 Sodium 134 mmol/L (136-145) L 04/25/16 06:30 Potassium 4.5 mmol/L (3.5-5.1) 04/25/16 06:30 Chloride 97 mmol/L (98-107) L 04/25/16 06:30 Carbon Dioxide 29 mmol/L (21-32) 04/25/16 06:30 Anion Gap 8 (8-16) 04/25/16 06:30 BUN 18 mg/dL (7-18) D 04/25/16 06:30 Creatinine 1.1 mg/dL (0.7-1.3) D 04/25/16 06:30 Creat Clearance w eGFR > 60 (>60) 04/25/16 06:30 POC Glucometer 107 UNITS (()) 04/27/16 05:32 Random Glucose 130 mg/dL (74-106) H D 04/25/16 06:30 Calcium 9.2 mg/dL (8.5-10.1) 04/25/16 06:30 Total Bilirubin 0.2 mg/dL (0.2-1.0) D 04/25/16 06:30 AST 11 U/L (15-37) L D 04/25/16 06:30 ALT 18 U/L (12-78) D 04/25/16 06:30 Alkaline Phosphatase 68 U/L (45-117) D 04/25/16 06:30 Total Protein 7.5 g/dl (6.4-8.2) 04/25/16 06:30 Albumin 4.2 g/dl (3.4-5.0) D 04/25/16 06:30 Urine Color Yellow 04/24/16 21:00 Urine Appearance Clear 04/24/16 21:00 Urine pH 5.0 (5.0-8.0) 04/24/16 21:00 Ur Specific [place] 1.020 (1.001-1.035) 04/24/16 21:00 Urine Protein Negative (NEGATIVE) 04/24/16 21:00 Urine Glucose (UA) Negative (NEGATIVE) 04/24/16 21:00 Urine Ketones Negative (NEGATIVE) 04/24/16 21:00 Urine Blood Negative (NEGATIVE) 04/24/16 21:00 Urine Nitrite Negative (NEGATIVE) 04/24/16 21:00 Urine Bilirubin Negative (NEGATIVE) 04/24/16 21:00 Urine Urobilinogen Negative E.U./dl (0.2-1.0) 04/24/16 21:00 Ur Leukocyte Esterase Negative (NEGATIVE) 04/24/16 21:00 RPR Titer Nonreactive (NONREACTIVE) 04/25/16 06:30 Hepatitis C Antibody >11.0 s/co ratio (0.0-0.9) H 04/24/16 13:00 HIV 1&2 Antibody Screen Negative 04/24/16 07:00 HIV P24 Antigen Negative 04/24/16 07:00 LABS NOTED. Assessment: 04/27/16 15:25 WITHDRAWAL SYMPTOMS. Plan: CONTINUE DETOX. ADVISED PATIENT TO FOLLOW-UP WITH [facility] REHAB MEDICAL PROVIDER AFTER DISCHARGE FROM DETOX FOR GENERAL MEDICAL ASSESSMENT AND FOR ABNORMAL ADMISSION LAB VALUES.
[2016-04-27] MEDS: THIAMINE HCL 100 MG TABLET (FP) PO SCH (21:01)
[2016-04-27] MEDS: MIRTAZAPINE 15 MG TABLET (FP) PO SCH (21:02)
[2016-04-27] MEDS: LURASIDONE HCL 40 MG TABLET PO SCH (21:03)
[2016-04-27] MEDS: ZOLPIDEM TARTRATE 10 MG TABLET (PARK CARE ONLY) PO PRN (21:04)
[2016-04-27] MEDS: PRAZOSIN HCL PO SCH (21:05)
[2016-04-28] MEDS: LEVOTHYROXINE NA 112 MCG TABLET (FP) PO SCH (06:03)
[2016-04-28 09:43] VITALS: BP 95/65; PULSE 75; TEMP 95.9
[2016-04-28] MEDS: DULoxetine HCL 60 MG CAPSULE.DR PO SCH (09:54)
[2016-04-28] MEDS: PRENATAL VITAMINS W/ FOLIC ACID TABLET (FP) PO SCH (09:54)
[2016-04-28] MEDS: NICOTINE 21 MG/24 HOURS TOPICAL PATCH TD SCH (09:55)
[2016-04-28] MEDS ORDERED: METHADONE HCL 10 MG TABLET (FOR DETOX USE ONLY) PO SCH (10:00)
[2016-04-28] MEDS ORDERED: diazePAM 5 MG TABLET PO SCH (10:00)
--- NOTE | 2016-04-28 14:55 | DS ---
[facility] Detox Discharge Summary Admission Date: 04/24/16 Discharge Date: 04/28/16 - History Present History: Opioid Dependence, Sedative Dependence Additional Comments: ADVISED PATIENT TO FOLLOW-UP WITH [facility] FOR GENERAL MEDICAL ASSESSMENT AND FOR ANY ABNORMAL ADMISSION LAB VALUES. Pertinent Past History: GERD, Hep C (Treated, Resolved), Hypothyroidism, Seizures (Substance-induced), Depression, Bi-Polar disorder, PTSD. - Physical Exam Results Vital Signs: Vital Signs Temperature 95.9 F L 04/28/16 09:42 Pulse Rate 75 04/28/16 09:42 Respiratory Rate 18 04/28/16 09:42 Blood Pressure 95/65 04/28/16 09:42 O2 Sat by Pulse Oximetry (%) Pertinent Admission Physical Exam Findings: WITHDRAWAL SYMPTOMS. Laboratory Last Values WBC 11.0 K/mm3 (4.0-10.0) H D 04/25/16 06:30 RBC 4.97 M/mm3 (4.00-5.60) 04/25/16 06:30 Hgb 13.1 GM/dL (11.7-16.9) 04/25/16 06:30 Hct 40.3 % (35.4-49) 04/25/16 06:30 MCV 81.2 fl (80-96) 04/25/16 06:30 MCHC 32.6 g/dl (32.0-35.9) 04/25/16 06:30 RDW 13.9 % (11.9-15.9) 04/25/16 06:30 Plt Count 178 K/MM3 (134-434) D 04/25/16 06:30 MPV 9.9 fl (7.5-11.1) 04/25/16 06:30 Sodium 134 mmol/L (136-145) L 04/25/16 06:30 Potassium 4.5 mmol/L (3.5-5.1) 04/25/16 06:30 Chloride 97 mmol/L (98-107) L 04/25/16 06:30 Carbon Dioxide 29 mmol/L (21-32) 04/25/16 06:30 Anion Gap 8 (8-16) 04/25/16 06:30 BUN 18 mg/dL (7-18) D 04/25/16 06:30 Creatinine 1.1 mg/dL (0.7-1.3) D 04/25/16 06:30 Creat Clearance w eGFR > 60 (>60) 04/25/16 06:30 POC Glucometer 100 UNITS (()) 04/28/16 06:02 Random Glucose 130 mg/dL (74-106) H D 04/25/16 06:30 Calcium 9.2 mg/dL (8.5-10.1) 04/25/16 06:30 Total Bilirubin 0.2 mg/dL (0.2-1.0) D 04/25/16 06:30 AST 11 U/L (15-37) L D 04/25/16 06:30 ALT 18 U/L (12-78) D 04/25/16 06:30 Alkaline Phosphatase 68 U/L (45-117) D 04/25/16 06:30 Total Protein 7.5 g/dl (6.4-8.2) 04/25/16 06:30 Albumin 4.2 g/dl (3.4-5.0) D 04/25/16 06:30 Urine Color Yellow 04/24/16 21:00 Urine Appearance Clear 04/24/16 21:00 Urine pH 5.0 (5.0-8.0) 04/24/16 21:00 Ur Specific [place] 1.020 (1.001-1.035) 04/24/16 21:00 Urine Protein Negative (NEGATIVE) 04/24/16 21:00 Urine Glucose (UA) Negative (NEGATIVE) 04/24/16 21:00 Urine Ketones Negative (NEGATIVE) 04/24/16 21:00 Urine Blood Negative (NEGATIVE) 04/24/16 21:00 Urine Nitrite Negative (NEGATIVE) 04/24/16 21:00 Urine Bilirubin Negative (NEGATIVE) 04/24/16 21:00 Urine Urobilinogen Negative E.U./dl (0.2-1.0) 04/24/16 21:00 Ur Leukocyte Esterase Negative (NEGATIVE) 04/24/16 21:00 RPR Titer Nonreactive (NONREACTIVE) 04/25/16 06:30 Hepatitis C Antibody >11.0 s/co ratio (0.0-0.9) H 04/24/16 13:00 HIV 1&2 Antibody Screen Negative 04/24/16 07:00 HIV P24 Antigen Negative 04/24/16 07:00 LABS NOTED. - Treatment Hospital Course: Detoxed Safely - Medication Discharge Medications: Ambulatory Orders Prazosin HCl [Minipress -] 2 mg PO HS 12/23/14 Prazosin HCl [Minipress -] 5 mg PO HS 12/23/14 Mirtazapine [Remeron -] 30 mg PO HS 01/03/16 Duloxetine HCl [Cymbalta -] 120 mg PO DAILY #60 capsule. 03/14/16 Levothyroxine [Synthroid -] 112 mcg PO DAILY #30 tablet 03/14/16 Lurasidone HCl [Latuda] 120 mg PO HS #30 tablet 03/14/16 Propranolol HCl [Propranolol HCl ER] 60 mg PO DAILY #30 cap.sa.24h 03/14/16 Duloxetine HCl [Cymbalta] 120 mg PO DAILY #60 capsule. 04/25/16 Lurasidone HCl [Latuda] 120 mg PO HS #30 tablet 04/25/16 Mirtazapine [Remeron -] 30 mg PO HS #30 tablet 04/25/16 Prazosin HCl [Minipress -] 2 mg PO HS #30 capsule 04/25/16 Prazosin HCl [Minipress -] 5 mg PO HS #30 capsule 04/25/16 - Diagnosis (1) Insomnia Status: Chronic Qualifiers: Insomnia type: unspecified Qualified Code(s): G47.00 - Insomnia, unspecified (2) Nicotine dependence Status: Chronic Qualifiers: Nicotine product type: cigarettes Substance use status: uncomplicated Qualified Code(s): F17.210 - Nicotine dependence, cigarettes, uncomplicated (3) Opioid dependence with withdrawal Status: Acute (4) Anxiety disorder Status: Chronic Qualifiers: Anxiety disorder type: unspecified anxiety disorder Qualified Code(s ): F41.9 - Anxiety disorder, unspecified (5) Bipolar disorder Status: Chronic Qualifiers: Active/Remission status: remission status unspecified Qualified Code (s): F31.9 - Bipolar disorder, unspecified (6) Chronic pain due to trauma Status: Chronic (7) Drug-induced mood disorder Status: Chronic (8) Hepatitis C Status: Resolved Qualifiers: Viral hepatitis chronicity: chronic Hepatic coma status: without hepatic coma Qualified Code(s): B18.2 - Chronic viral hepatitis C (9) Hypothyroidism Status: Chronic Qualifiers: Hypothyroidism type: acquired Qualified Code(s): E03.9 - Hypothyroidism, unspecified (10) Low back pain Status: Chronic Qualifiers: Chronicity: unspecified Back pain laterality: unspecified Sciatica presence: unspecified whether sciatica present Qualified Code(s): M54.5 - Low back pain (11) Nightmares associated with chronic post-traumatic stress disorder Status: Chronic (12) Post traumatic stress disorder (PTSD) Status: Chronic (13) Sedative/hypnotic withdrawal without complication Status: Acute (14) History of seizure Status: Chronic - AMA Did Patient Leave Against Medical Advice: Yes (PATIENT DID NOT WANT TO STAY TO COMPLETE DETOX [facility]MI[facility].)
[2016-04-29] MEDS ORDERED: METHADONE HCL 5 MG TABLET (FOR DETOX USE ONLY) PO SCH (06:00)
== END 2016-04-28 11:15 | disposition left against medical advice (07) | DRG 894 ==
LOC: YASAS 09:49 → Y3N 12:25
PROVIDERS: ADMIT Internal Medicine Addiction Medicine; ATTEND Internal Medicine
PROC: HZ2ZZZZ Detoxification Services for Substance Abuse Treatment (ICD-10-PCS; principal; 2016-04-28)
DX: F11.23 Opioid dependence with withdrawal (principal); F14.20 Cocaine dependence, uncomplicated; F13.230 Sedative, hypnotic or anxiolytic dependence with withdrawal, uncomplicated; F17.210 Nicotine dependence, cigarettes, uncomplicated; F31.9 Bipolar disorder, unspecified; F42.9 Obsessive-compulsive disorder, unspecified; F19.24 Other psychoactive substance dependence with psychoactive substance-induced mood disorder; F43.10 Post-traumatic stress disorder, unspecified; F51.5 Nightmare disorder; G47.09 Other insomnia; B18.2 Chronic viral hepatitis C; M54.5 Low back pain; G89.29 Other chronic pain; E03.9 Hypothyroidism, unspecified; Z86.69 Personal history of other diseases of the nervous system and sense organs
CPT/HCPCS: 36415; 80053; 81003; 85027; 86593; 87389; 87522; 93005; 93010

== ENCOUNTER 2024-03-09 16:28 | Inpatient (IN) | payer OTHER ==
[2024-03-09 16:51] VITALS: BMI 23.1
[2024-03-09] MEDS ORDERED: IBUPROFEN 600 MG TABLET (FP) PO PRN (17:10)
[2024-03-09] MEDS ORDERED: NICOTINE POLACRILEX 2 MG LOZENGE BC PRN (17:10)
[2024-03-09] MEDS ORDERED: BISMUTH SUBSALICYLATE 524 MG/30 ML PO PRN (17:10)
[2024-03-09] MEDS ORDERED: ACETAMINOPHEN 325 MG TABLET (FP) PO PRN (17:10)
[2024-03-09] MEDS ORDERED: ONDANSETRON *ODT* 4 MG TABLET SL PRN (17:10)
[2024-03-09] MEDS ORDERED: LOPERAMIDE HCL 2 MG CAPSULE PO PRN (17:10)
[2024-03-09] MEDS ORDERED: DICYCLOMINE HCL 10 MG CAPSULE PO PRN (17:10)
[2024-03-09] MEDS ORDERED: POLYETHYLENE GLYCOL (HEALTHYLAX) 3350 17 GM PACKET PO PRN (17:10)
[2024-03-09] MEDS ORDERED: BENZONATATE 200 MG CAPSULE PO PRN (17:10)
[2024-03-09] MEDS ORDERED: P-EPHED 60MG/TRIPROLIDI 2.5MG TABLET PO PRN (17:10)
[2024-03-09] MEDS ORDERED: IBUPROFEN 400 MG TABLET (FP) PO PRN (17:10)
[2024-03-09] MEDS ORDERED: MAG HYDROX/AL HYDROX/SIMETH 30 ML UNIT-DOSE CUP PO PRN (17:10)
[2024-03-09] MEDS ORDERED: NICOTINE POLACRILEX 2 MG GUM BUC PRN (17:10)
[2024-03-09] MEDS ORDERED: MAGNESIUM HYDROX 2400MG/30ML ORAL SUSPENSION 30 ML CUP PO PRN (17:10)
[2024-03-09] MEDS ORDERED: NALOXONE (NARCAN) HCL 4 MG/0.1 ML SPRAY NS PRN (17:10)
[2024-03-09] MEDS ORDERED: methaDONE HCL 10 MG TABLET (FOR DETOX USE ONLY) ONE (18:25)
[2024-03-09] MEDS: methaDONE HCL 10 MG TABLET (FOR DETOX USE ONLY) PO ONE (18:29)
[2024-03-09] MEDS: clonazePAM 0.5 MG ODT TABLETS SL PRN (19:21)
[2024-03-09] MEDS: THIAMINE 100 MG TABLET PO SCH (22:16)
[2024-03-09] MEDS: MELATONIN 5 MG TABLETS PO SCH (22:16)
[2024-03-09] MEDS: cloNIDine HCL 0.1 MG TABLET PO PRN (22:17)
[2024-03-09] MEDS: METHOCARBAMOL 500 MG TABLET PO PRN (22:17)
[2024-03-10] MEDS: LEVOTHYROXINE NA 150 MCG TABLET PO SCH (07:00)
[2024-03-10] MEDS: PRENATAL VITAMINS W/ FOLIC ACID TABLET (FP) PO SCH (09:24)
[2024-03-10] MEDS: PANTOPRAZOLE 40 MG TABLET PO SCH (09:26)
[2024-03-10] MEDS: clonazePAM 1 MG ODT TABLETS SL SCH (09:27)
[2024-03-10] MEDS: levETIRAcetam 500 MG TABLET (FP) PO SCH (09:52)
[2024-03-10] MEDS: GABAPENTIN 100 MG CAPSULE PO ONE (09:52)
[2024-03-10] MEDS ORDERED: MIRTAZAPINE 30 MG TABLET PO SCH (10:00)
[2024-03-10] MEDS: NICOTINE 21 MG/24 HOURS TOPICAL PATCH TD SCH (10:11)
[2024-03-10] MEDS: DULoxetine HCL 60 MG CAPSULE.DR PO SCH (10:23)
[2024-03-10] MEDS: GABAPENTIN 100 MG CAPSULE PO SCH (13:33)
[2024-03-10] MEDS: MIRTAZAPINE 30 MG TABLET PO SCH (22:06)
[2024-03-10] MEDS: PRAZOSIN HCL 5 MG CAPSULE PO SCH (22:07)
[2024-03-11] MEDS: GABAPENTIN 100 MG CAPSULE PO SCH (07:00)
[2024-03-11] MEDS: methaDONE HCL 10 MG TABLET (FOR DETOX USE ONLY) PO ONE (10:48)
[2024-03-11] MEDS: guaiFENesin 600 MG TABLET.ER (FP) PO PRN (11:32)
[2024-03-11] MEDS: BENZOCAINE/MENTHOL (CHLORASEPTIC ) LOZENGE MM PRN (11:33)
[2024-03-11] MEDS: clonazePAM 1 MG ODT TABLETS SL SCH (17:40)
[2024-03-12] MEDS: LEVOTHYROXINE 100 MCG, LEVOTHYROXINE 50 MCG PO SCH (06:27)
[2024-03-12] MEDS: GABAPENTIN 300 MG CAPSULE PO SCH (06:27)
[2024-03-12 06:41] VITALS: RESP 16; TEMP 97.6
[2024-03-12 08:37] VITALS: BP 100/69; PULSE 104
[2024-03-13] MEDS ORDERED: methaDONE HCL 10 MG TABLET (FOR DETOX USE ONLY) PO ONE (10:00)
== END 2024-03-12 08:58 | disposition home or self-care (01) | DRG 897 ==
LOC: YASAS 16:28 → Y6N 17:52
PROVIDERS: ADMIT Allergy & Immunology; ATTEND Allergy & Immunology
PROC: HZ2ZZZZ Detoxification Services for Substance Abuse Treatment (ICD-10-PCS; principal; 2024-03-09)
DX: F11.23 Opioid dependence with withdrawal (principal); F13.20 Sedative, hypnotic or anxiolytic dependence, uncomplicated; F19.280 Other psychoactive substance dependence with psychoactive substance-induced anxiety disorder; F19.282 Other psychoactive substance dependence with psychoactive substance-induced sleep disorder; F14.10 Cocaine abuse, uncomplicated; F17.210 Nicotine dependence, cigarettes, uncomplicated; F32.A Depression, unspecified; F41.9 Anxiety disorder, unspecified; F43.10 Post-traumatic stress disorder, unspecified; B18.2 Chronic viral hepatitis C; E03.9 Hypothyroidism, unspecified; K21.9 Gastro-esophageal reflux disease without esophagitis; M54.50 Low back pain, unspecified; G89.29 Other chronic pain; Z91.85 Personal history of military service; Z88.8 Allergy status to other drugs, medicaments and biological substances
CPT/HCPCS: 80305; 80307; 93005; 93010

== ENCOUNTER 2024-05-01 14:09 | Inpatient (IN) | payer OTHER ==
[2024-05-01 15:11] VITALS: BMI 23.6
[2024-05-01] MEDS ORDERED: methaDONE HCL 10 MG TABLET (FOR DETOX USE ONLY) PO ONE (17:18)
[2024-05-01] MEDS ORDERED: cloNIDine HCL 0.1 MG TABLET PO PRN (17:18)
[2024-05-01] MEDS ORDERED: BENZONATATE 200 MG CAPSULE PO PRN (17:23)
[2024-05-01] MEDS ORDERED: guaiFENesin 600 MG TABLET.ER (FP) PO PRN (17:23)
[2024-05-01] MEDS ORDERED: BENZOCAINE/MENTHOL (CHLORASEPTIC ) LOZENGE MM PRN (17:23)
[2024-05-01] MEDS ORDERED: DICYCLOMINE HCL 10 MG CAPSULE PO PRN (17:23)
[2024-05-01] MEDS ORDERED: POLYETHYLENE GLYCOL (HEALTHYLAX) 3350 17 GM PACKET PO PRN (17:23)
[2024-05-01] MEDS ORDERED: LOPERAMIDE HCL 2 MG CAPSULE PO PRN (17:23)
[2024-05-01] MEDS ORDERED: MAG HYDROX/AL HYDROX/SIMETH 30 ML UNIT-DOSE CUP PO PRN (17:23)
[2024-05-01] MEDS ORDERED: MAGNESIUM HYDROX 2400MG/30ML ORAL SUSPENSION 30 ML CUP PO PRN (17:23)
[2024-05-01] MEDS ORDERED: BISMUTH SUBSALICYLATE 524 MG/30 ML PO PRN (17:23)
[2024-05-01] MEDS ORDERED: ONDANSETRON *ODT* 4 MG TABLET SL PRN (17:23)
[2024-05-01] MEDS ORDERED: P-EPHED 60MG/TRIPROLIDI 2.5MG TABLET PO PRN (17:23)
[2024-05-01] MEDS ORDERED: NALOXONE (NARCAN) HCL 4 MG/0.1 ML SPRAY NS PRN (17:23)
[2024-05-01] MEDS ORDERED: IBUPROFEN 600 MG TABLET (FP) PO PRN (17:23)
[2024-05-01] MEDS ORDERED: NICOTINE POLACRILEX 2 MG GUM BUC PRN (17:23)
[2024-05-01] MEDS ORDERED: NICOTINE POLACRILEX 2 MG LOZENGE BC PRN (17:23)
[2024-05-01] MEDS ORDERED: ACETAMINOPHEN 325 MG TABLET (FP) PO PRN (17:23)
[2024-05-01] MEDS ORDERED: IBUPROFEN 400 MG TABLET (FP) PO PRN (17:23)
[2024-05-01] MEDS ORDERED: methaDONE HCL 10 MG TABLET (FOR DETOX USE ONLY) ONE (17:57)
[2024-05-01] MEDS: levETIRAcetam 500 MG TABLET (FP) PO SCH (22:08)
[2024-05-01] MEDS: THIAMINE 100 MG TABLET PO SCH (22:08)
[2024-05-01] MEDS: MELATONIN 5 MG TABLETS PO SCH (22:08)
[2024-05-01] MEDS: METHOCARBAMOL 500 MG TABLET PO PRN (22:09)
[2024-05-02] MEDS ORDERED: LEVOTHYROXINE NA 125 MCG TABLET (FP) PO SCH (07:00)
[2024-05-02] MEDS: LEVOTHYROXINE 100 MCG, LEVOTHYROXINE 25 MCG PO SCH (07:31)
[2024-05-02] MEDS ORDERED: DULoxetine HCL 30 MG CAPSULE.DR PO ONE (10:05)
[2024-05-02] MEDS: clonazePAM 1 MG ODT TABLETS SL SCH ×2 (10:11→14:45)
[2024-05-02] MEDS: methaDONE HCL 10 MG TABLET (FOR DETOX USE ONLY) PO ONE (10:11)
[2024-05-02] MEDS: PRENATAL VITAMINS W/ FOLIC ACID TABLET (FP) PO SCH (10:14)
[2024-05-02] MEDS: DULoxetine HCL 60 MG CAPSULE.DR PO SCH (10:14)
[2024-05-02] MEDS: FAMOTIDINE 20 MG TABLET PO SCH (10:15)
[2024-05-02] MEDS: KETOCONAZOLE 2 % SHAMPOO 120 ML BOTTLE TP SCH (11:00)
[2024-05-02] MEDS: NICOTINE 14 MG/24 HOURS TOPICAL PATCH TD SCH (11:46)
[2024-05-02 16:58] VITALS: RESP 18
[2024-05-02] MEDS ORDERED: MIRTAZAPINE 15 MG TABLET (FP) ONE (21:11)
[2024-05-02] MEDS: PRAZOSIN HCL 1 MG CAPSULE PO SCH (22:32)
[2024-05-02] MEDS: MIRTAZAPINE 30 MG TABLET PO SCH (22:33)
[2024-05-03 08:51] VITALS: BP 112/68; PULSE 106; TEMP 97.6
[2024-05-03] MEDS ORDERED: methaDONE HCL 10 MG TABLET (FOR DETOX USE ONLY) PO ONE (10:00)
[2024-05-04] MEDS ORDERED: methaDONE HCL 10 MG TABLET (FOR DETOX USE ONLY) PO ONE (10:00)
== END 2024-05-03 10:35 | disposition home or self-care (01) | DRG 897 ==
LOC: YASAS 14:09 → Y3N 17:46
PROVIDERS: ADMIT Allergy & Immunology; ATTEND Allergy & Immunology
PROC: HZ2ZZZZ Detoxification Services for Substance Abuse Treatment (ICD-10-PCS; principal; 2024-05-01)
DX: F11.23 Opioid dependence with withdrawal (principal); F19.282 Other psychoactive substance dependence with psychoactive substance-induced sleep disorder; F19.280 Other psychoactive substance dependence with psychoactive substance-induced anxiety disorder; F17.210 Nicotine dependence, cigarettes, uncomplicated; F19.24 Other psychoactive substance dependence with psychoactive substance-induced mood disorder; F43.10 Post-traumatic stress disorder, unspecified; E03.9 Hypothyroidism, unspecified; K21.9 Gastro-esophageal reflux disease without esophagitis; R56.9 Unspecified convulsions; Z88.8 Allergy status to other drugs, medicaments and biological substances
CPT/HCPCS: 80305; 80307